=== PATIENT | male | born 1970 | race Two or more races ===

== ENCOUNTER 2023-05-28 14:56 | Inpatient (IN) | payer OTHER ==
[~2023-05-28] VITALS: Ht 162.6 cm; Wt 9071.8 kg
--- NOTE | 2023-05-28 15:08 | NUR ---
SE RECIBE PTE DESORIENTADO EN AMBULANCIA. PARAMEDICO REFIERE QUE UN EPISODIO DE HYPERGLUCEMIA Y QUE TIENE SOBREDOSIS DE ALGUNA SUSTANCIA. SE MIDEN S/V
--- NOTE | 2023-05-28 16:40 | NUR ---
PTE EVALUADO POR , ALEJANDRO ORDENAD [place]. SE ORIENTA SOBRE ORDENES DE [place] A FAMILIARES. PTE AL MOMENTO, NO VERBALIZA Y SE ENCUENTRA COMBATIVO Y POCO COOPERADOR. MD ALEXISA ORDENA RESTRINGIR PTE, SE REALIZA READBACK X2. SE ACTIVA PROCOTOLO DE RESTRICCION, MO[place] ORDEN MEDICA. SE COLOCAN RESTRICCIONES BLANDAS EN EXTREMIDADES SUPERIORES E INFERIORES, [place] ORDEN MEDICA. SE CANALIZA VENA BAJO MEDIDAS ASEPTICAS, AREA ASHA DE EDEMA Y ERITEMA. SE ADMINISTRAN LIQUIDOS INTRAVENOSOS, [place] ORDEN MEDICA. SE TRASLADA PTE A UNIDAD DE CHESTPAIN, [place] ORDEN MEDICA. PENDIENTE REALIZACION DE EKG.
--- NOTE | 2023-05-28 17:02 | NUR ---
SE RECIBE PACIENTE EN AREA DE CHEST PAIN EL CUAL SE OBSERVA LETARGICO, PACIENTE CON CANALIZACION EN MANO DERECHA #18 BAJANDO UN .9NSS A 250 ML/HR, SE CONECTA A MONITOR CARDIACO, PACIENTE RESTRINGIDO X2. NO SE OBSERVAN EMATOMAS NI ERITEMAS EN CUERPO NI EXTREMIDADES. SE TRATA DE DESPERTAR A PACIENTE EL MISMO ABRE OJOS Y [facility] NO RESPONDE VERBAL. SE DESMOND PACIENTE EN REBECCA CON BARANDAS ELEVADAS.
--- NOTE | 2023-05-28 17:19 | NUR ---
1715: SE RECIBE PACIENTE POR RN MORELES DE OBSERVACION A AREA DE CHEST PAIN EL CUAL SE OBSERVA LETARGICO, PACIENTE CON CANALIZACION EN MANO DERECHA #18 BAJANDO UN .9NSS A 250ML/HR, SE CONECTA A MONITOS CARDIACO. PACIENTE RESTRINGIDO X4 POR PREVENCION. NO SE OBSERVA ERITEMAS NI EDEMAS EN EL CUERPO NI EXTREMIDADES. SE TRATA DE DESPERTAR A PACIENTE EL MISMO ABRE OJOS Y [facility] NO RESPONDE VERBAL Y VUELVE A QUEDAR PROFUNDAMENTE DORMIDO, SE DESMOND PACIENTE EN REBECCA CON BARANDAS ELEVADAS. 1723: PACIENTE COMIENZA TENER MOVIMIENTOS INVOLUNTARIOS. SE LE REALIZA EKG Y SE PRESENTA A DOCTORA EN TURNO.
--- NOTE | 2023-05-28 18:48 | NUR ---
PACIENTE LETARGICO EN CAMA CON RESTRICCIONES X4 DOCTOR GAXIOLA EVALUA AL MISMO Y LE COLOCA ORDEN DE FOLLEY, EKG, MUESTRAS DE LABORATORIO. SE REALIZAN ORDENES MEDICAS, SE LE COLOCA SONDA URINARIA FOLLEY A PACIENTE, ORINA BAJA A GRAVEDAD AL MOMENTO 600ML COLOR AMARILLA. SE REALIZAN MUESTRAS DE LABORATORIO BAJO MEDIDAS ASEPTICAS Y SE ENVIAN DE FORMA INMEDIATA A LAB. PACIENTE EN COMPLETO DESCANSO EN REBECCA CON BARANDAS ELEVADAS CONECATDO A MONITOR CARDIACO.
--- NOTE | 2023-05-28 19:10 | NUR ---
SE LE KONSTANTIN MEDICAMENTO A PACIENTE MODESTO ORDEN MEDICA SE DESMOND BAJO OBSERVACION POR CUALQUIER CAMBIO SIGNIFICATIVO.
--- NOTE | 2023-05-28 19:25 | NUR ---
PACIENTE EN REBECCA CON BARANDAS ELEVADAS, RESTRINGIDO X4 SE LE KONSTANTIN MASAJE EN AREAS RESTRINGIDAS Y SE POSICIONA PACIENTE LUEGO DE CAMBIARLO Y LIMPIARLO.
--- NOTE | 2023-05-28 20:21 | NUR ---
SE LE COLOCA A PACIENTE INSULINA 8 UNIDADES MODESTO ORDEN MEDICA, SE LE VERIFICA ANTES LA DXT Y LA MISMA REFLEJA 312MG/DL.
--- NOTE | 2023-05-28 22:16 | NUR ---
PACIENTE EN COMPLETO DESCANSO CON ANGIO #18 EN MANO DERECHA POR EL CUAL BAJA .9 NSS A 250ML/HR, CONECTADO A MONITOR CARDIACO Y OXIMETRIA DE PULSO, CON FOLLEY BAJANDO A GRAVEDAD, AREA PERIANAL ASHA DE ENROJECIMIENTO. PACIENTE SIN EDEMAS EN EXTREMIDADES NI ERITEMAS. SE COLECTA 1200 ML DE ORINA EN FOLLEY, SE REPOSICIONA PACIENTE DE LADO KEL EL MISMO CON RESTRICCIONES X4 NO PRESENTA ENROJECIMIENTO EN ESTHELA NI PIES. SE REALIZA DXT Y SE DOCUMENTA EN SISTEMA JUNTO CON VITALES. SE DESMOND PACIENTE PREPARADO PARA PROXIMO TURNO.
--- NOTE | 2023-05-28 22:45 | NUR ---
SE VERIFICA DXT DE PACIENTE LA CUAL REFLEJA 314 MG/DL Y SE PRESENTA A DOCTOR GAXIOLA EL CUAL ORDENA 5 UNIDADES DE INSULINA IV, SE COLOCA MEDICAMENTO MODESTO ORDEN MEDICA Y SE DESMOND PACIENTE EN REPOSO.
--- NOTE | 2023-05-28 22:54 | NUR ---
SE RECIBE PTE MASCULINO DE 52 ANOS LETARGICO Y DORMIDO. PTE SE OBSERBA CONECTADO A MONITOR CARDIACO EDGAR Y A OXIMETRIA. SE MONITORENA S/V Y SE DOCUMENTAN. PTE SE OBSERBA CON CATETER KABA PATENTE Y DRENANDO A GRAVEDAD. PTE SE OBSERBA RESTRINGIDO X4 POR PREVENCION A CAUSARSE RUBI A SI MISMO DEBIDO A DESORIENTACION. PTE BAJO OBSERBACION POR CAMBIO EN ARAIZA CONDICION.
--- NOTE | 2023-05-28 22:59 | NUR ---
SE RECIBE PTE MASCULIO DE 51 ANOS LETARGICO, DESORIENTADO EN [address] COURT ESFERAS Y DORMIDO. PTE SE OBSERBA EN MONITOR CARDIACO EDGAR Y OXIMETRIA. SE MONITOREAN S/V Y SE DOCUMENTAN. PTE SE OBSERBA RESTRINGIDO X4 DEBIDO A PRECAUCION PARA NO INTERUMPIR TX MED Y CAUSARSE RUBI. PTE SE MANTIENE BAJO OBSERBACION POR CAMBIO EN ARAIZA CONDICION.
--- NOTE | 2023-05-29 08:44 | NUR ---
SE RECIBE PTE DEL TURNO ANTERIOR UBICADO EN CAMA CON BARANDAS ELEVADAS CONECTADO A MONITOR CARDIACO Y OXIMETRIA DE PULSO. AL MOMENTO PTE LETARGICO Y SOMNOLIENTO EL CUAL RESPONDE A ESTIMULO DE DOLOR DE FORMA FISICA, SIN RESPUESTA VERBAL. SE OBSERVAN PUPILAS DILATDAS, PTE RESPONDE A ESTIMULO EN AREA CORNEAL. PTE PRESENTA BUEN PATRON RESPIRATORIO SATURANDO 100% MODESTO OXIMETRIA DE PULSO. SE OBSERVA VENOPUNCION EN BRAZO DERECHO ANGIO #18 CON FECHA DE 05/28/23 RECIBIENDO UN 0.9% NSS 1000ML A 250ML/HR. PIEL TIBIA AL TACTO, SE OBSERVA EDEMA EN EXTREMIDADES SUPERIORES, BLISTERS EN MANO IZQUIERDA.PTE RESTRINGIDO X4 AL MOMENTO AREAS ASHA DE ERITEMA, PTE TOLERA LAS MISMAS. PTE CON KABA PATENTE BAJANDO A GRAVEDAD #16 CON FECHA DE 05/28/23, CON EGRESO APROXIMADO DE 100ML COLOR AMARILLO OSCURO. 7:30AM PTE RE EVALUADO POR EL QUIEN ORDENA TX MEDICO Y SE ADMINISTRA EL MISMO. 8:00AM PTE EVALUADO POR EL QUIEN ORDENA TX MEDICO, SE NOTIFICA CT DE DAYDAY SIN CONTRASTE A PERSONAL DE TURNO. SE CANALIZA A PTE EN BRAZO IZQ ANGIO #20 AL MOMENTO PATENTE ASHA DE EDEMA Y ERITEMA. SE PROVEE COMODIDAD A PTE Y TOLERA EL MISMO. SE MANTIENE BAJO OBSERVACION CON MONITOR CARDIACO Y OXIMETRIA DE PULSO POR CAMBIOS SIGNIFICATIVOS.
--- NOTE | 2023-05-29 09:29 | NUR ---
9:00AM SE LLEVA A PTE A ESTUDIO DE CT DE DAYDAY SIN CONTRASTE CON PERSONAL DE ESCOLTA. PTE TOLERA EL MISMO. AL MOMENTO PTE CONTINUA SIN SEGUIR COMANDOS. SE CONTINUA BAJO OBSERVACION POR CAMBIOS SIGNIFICATIVOS.
--- NOTE | 2023-05-29 10:46 | NUR ---
10:30AM SE COLOCA PAMPER DESECHABLE A PTE. 10:40AM TRABAJADORAS SOCIALES REALIZAN CONSULTA A PTE.
--- NOTE | 2023-05-29 12:13 | NUR ---
12:00PM PTE RESPONDE A PREGUNTAS.
--- NOTE | 2023-05-29 16:47 | NUR ---
SE RECIBE PACIENTE ALERTA, DESORIENTADO X 3 ESFERAS, COMBATIVO Y POCO COOPERADOR EN CAMA CON BARANDAS ELEVADAS POR SEGURIDAD EN LA UNIDAD DE DOLOR DE PECHO. CONECTADO A MONITOR CARDIACO Y OXIMETRIA DE PULSO. RESTRINGIDO EN EXTREMIDADES SUPERIORES E INFERIORES. RECIBIENDO IV'S 0.9MSS BAJANDO A 20ML/HR POR VENOPUNCION EN BRAZO DERECHO AREA ASHA DE EDEMA Y ERITEMA. SONDA URINARIA DRENANDO A GRAVEDAD 100ML DE ORINA COLOR AMARILLO INTENSO. SE MIDEN SIGNOS VITALES Y SE REPORTAN. SE DESMOND A PACIENTE EN CAMA CON BARANDAS ELEVADAS POR SEGURIDAD Y SE MANTIENE EN OBSERVACION POR CAMBIOS.
== END 2023-06-01 11:51 | disposition home or self-care (01) | DRG 918 ==
LOC: ER 14:56 → ICU 05-29 17:18 → ICU-2 05-29 17:18 → ICU 05-29 20:11
PROVIDERS: ADMIT Internal Medicine; ATTEND Internal Medicine
PROC: 4A12X4Z Monitoring of Cardiac Electrical Activity, External Approach (ICD-10-PCS; 2023-05-28)
PROC: 3E0F7SF Introduction of Other Gas into Respiratory Tract, Via Natural or Artificial Opening (ICD-10-PCS; 2023-05-28)
PROC: B020ZZZ Computerized Tomography (CT Scan) of Brain (ICD-10-PCS; principal; 2023-05-29)
PROC: B030ZZZ Magnetic Resonance Imaging (MRI) of Brain (ICD-10-PCS; 2023-05-29)
PROC: B246ZZZ Ultrasonography of Right and Left Heart (ICD-10-PCS; 2023-05-29)
PROC: B345ZZZ Ultrasonography of Bilateral Common Carotid Arteries (ICD-10-PCS; 2023-05-29)
PROC: B348ZZZ Ultrasonography of Bilateral Internal Carotid Arteries (ICD-10-PCS; 2023-05-29)
DX: T40.2X4A Poisoning by other opioids, undetermined, initial encounter (principal); N17.8 Other acute kidney failure; T51.94XA Toxic effect of unspecified alcohol, undetermined, initial encounter; R41.82 Altered mental status, unspecified; R45.1 Restlessness and agitation; D72.828 Other elevated white blood cell count; F32.89 Other specified depressive episodes; Y92.9 Unspecified place or not applicable; E11.9 Type 2 diabetes mellitus without complications; Z96.41 Presence of insulin pump (external) (internal); Z78.1 Physical restraint status; Z79.4 Long term (current) use of insulin
CPT/HCPCS: 70544